=== PATIENT | female | born 1980 | race Caucasian/White ===

== ENCOUNTER 2020-01-25 18:48 | Emergency (ER) | payer OTHER ==
[2020-01-25 19:03] VITALS: TEMP 98.6; BMI 27.7
--- NOTE | 2020-01-25 19:13 | PDOC ---
History of Present Illness - General Chief Complaint: Blood Pressure Problem Stated Complaint: HYPERTENSIVE Time Seen by Provider: 01/25/20 19:12 History Source: Patient Exam Limitations: No Limitations - History of Present Illness Initial Comments: 01/25/20 19:13 40F with PMH of HTN presents to the ED with palpitations, 1 episode today, unprovoked, no emotional stressors, which prompted them to call EMS. This occurred at rest, self resolved. She was seen yesterday at [facility] w/ same complaint, 1 episode, and dx with new onset HTN, d/c with metoprolol. Took first dose this AM. She reports chest discomfort described as feeling like a "sunburn" but denies it being chest pain. Denies rash. She reported sudden onset blurry vision of bilateral eyes associated with palpitations, now resolved. Denies headache, syncope, lightheadedness/dizziness, numbness/tingling, SOB, hematuria. SH: , choleycystectomy Meds: metoprolol tartrate 25mg BID Allergies: NKDA Tob/Etoh/Rec drugs: neg x3 PCP: none ROS: HEENT: +change in vision. CARDIOVASCULAR: No chest pain or shortness of breath RESPIRATORY: No cough, wheezing, or hemoptysis. GASTROINTESTINAL: No nausea, vomiting, diarrhea or constipation. GENITOURINARY: No dysuria, frequency, or change in urination. SKIN: No rash NEUROLOGIC: No headache, vertigo, loss of consciousness, or change in strength/sensation. HEMATOLOGIC/LYMPHATIC: No anemia, easy bleeding, or history of blood clots. PE: GENERAL: AOx3; no apparent distress EYES: PERRLA, EOMI, conjunctiva clear; 20/20 vision bilaterally ENT: Auricles normal, hearing grossly normal, moist mucosa, oropharynx clear CARDIO: RRR, normal S1/S2, no murmurs, rubs, gallops LUNGS: No distress, speaks full sentences, CTA bilaterally ABDOMEN: Soft, nontender. No guarding, no rebound. No masses EXTREMITIES: no edema NEUROLOGICAL: CNII-XII intact. Normal speech. No focal sensorimotor deficits. Cerebellar testing intact. SKIN: No chest wall, flank or back rash/lesions Assessment and Plan 1. paroxysmal SVT, AVNRT 2. asymptomatic hypertension 3. hyperthyroidism 4. ACS r/o Jey Steven, PGY1 Emergency Medicine Past History - Medical History Allergies/Adverse Reactions: Allergies Allergy/AdvReac Type Severity Reaction Status Date / Time No Known Allergies Allergy Verified 01/25/20 20:12 - Reproductive History Is Patient Now?: No - Psycho-Social/Smoking History Smoking History: Never smoked - Substance Abuse Hx (Audit-C & DAST Scrn) How often the patient has a drink containing alcohol: Never Score: In Men: 4 or > Positive; In Women: 3 or > Positive: 0 Screen Result (Pos requires Nsg. Audit-10AR): Negative In the last yr the pt used illegal drug/Rx for NonMed reason: No Score: Yes response is considered Positive: 0 Screen Result (Positive result requires Nsg. DAST-10): Negative *Physical Exam - Vital Signs Last Vital Signs Temp Pulse Resp BP Pulse Ox 98.6 F 95 H 19 162/85 100 01/25/20 18:57 01/25/20 18:57 01/25/20 18:57 01/25/20 18:57 01/25/20 18:57 ED Treatment Course - LABORATORY CBC & Chemistry Diagram: 01/25/20 20:15 Medical Decision Making - Medical Decision Making 01/25/20 20:07 40F p/w palpitations. Exam unremarkable, no chest wall rash, vision . -> will r/o ACS, TSH to eval for hyperthyroidism. DDx: -asymptomatic HTN -ACS r/o -> considered due to chest discomfort -> EKG nsr, trop negative -paroxysmal SVT -> EKG -> no evidence on EKG -PE -> PERC negative -hyperthroidism -> TSH -> wnl 01/25/20 21:17 CXR negative. 01/25/20 21:21 Will give pt home dose metoprolol tartrate 25mg 01/25/20 23:02 Upreg negative. Vitals improved -> 141/89, HR 79, RR 18, 99% -> stable for d/c to follow up with PCP referral Discharge - Discharge Information Problems reviewed: Yes Clinical Impression/Diagnosis: Palpitations Condition: Stable Disposition: HOME - Admission No - Follow up/Referral Referrals: [facility] [place] [facility] [place] [Provider Group] - Patient Discharge Instructions Patient Printed Discharge Instructions: DI for High Blood Pressure Additional Instructions: You were seen in the emergency department for heart palpitations. You received metoprolol. Your labs and imaging were normal. Please follow up with your primary care physician regarding your visit to the emergency department. If you experience profound chest pain, shortness of breath, palpitations that won't improve with rest, please return to the emergency department or call 911. - Post Discharge Activity
--- OUTSIDE RECORDS SUMMARY | 2020-01-25 19:23 | XMS ---
:1980 Author Organization [facility] Care Team Providers Name Role Phone EMERGENCY SERVICE, X Unavailable Unavailable Re-disclosure Warning The records that you are about to access may contain information from federally- assisted alcohol or drug abuse programs. If such information is present, then the following federally mandated warning applies: This information has been disclosed to you from records protected by federal confidentiality rules (42 CFR part 2). The federal rules prohibit you from making any further disclosure of this information unless further disclosure is expressly permitted by the written consent of the person to whom it pertains or as otherwise permitted by 42 CFR part 2. A general authorization for the release of medical or other information is NOT sufficient for this purpose. The Federal rules restrict any use of the information to criminally investigate or prosecute any alcohol or drug abuse patient.The records that you are about to access may contain highly sensitive health information, the redisclosure of which is protected by Article 27-F of the [facility] Public Health law. If you continue you may haveaccess to information: Regarding HIV / AIDS; Provided by facilities licensed or operated by the [facility] Office of Mental Health; or Provided by the [facility] Office for People With Developmental Disabilities. If such information is present, then the following [facility] mandated warning applies: This information has been disclosed to you from confidential records which are protected by state law. State law prohibits you from making any further disclosure of this information without the specific written consent of the person to whom it pertains, or as otherwise permitted by law. Any unauthorized further disclosure in violation of state law may result in a fine or shelter sentence or both. A general authorization for the release of medical or other information is NOT sufficient authorization for further disclosure. Encounters Encounter Providers Location Date Indications Data Source(s ) Emergency Attender: 01/24/2020 NOT FEELING WELL [facility] EMERGENCY SERVICE, 03:11:00 PM [facility] XAdmitter: EDT [facility] EMERGENCY SERVICE, X NOT FEELING WELL Medications Medication Brand Start Product Dose Route Administrative Pharmacy atus Indications Reaction Description Data Name Date Form Instructions Instructions Source(s) Metoprolol UNK complet Metoprolo l [place] Tartrate 25 2020 MG ed Tartrate 25 r [place] MG Oral 10:14: MG Oral Health 30 PM Tablet TAKE Care EDT 1 TABLET Corporatio TWICE DAILY. n Dispense: 28 Potassium Potass UNK active Potassiu m [place] Chloride O ium 2019 meq Chloride r Cou nty Chlori 05:02: Oral 40 meq Heal th de O 48 PM PO Care EDT Corporatio n Medication administered onsite Metoprolol Metoprolol 01/24/2020 50 UNK active Metoprolol [place] (Lopresso (Lopresso 04:00:18 PM mg (Lo pressor) [facility] EDT 25 mg Oral Health Ca re 50 mg PO Corporation Medication administered onsite Insurance Providers Payer name Policy type Policy ID Covered Covered libertarian's Policy P kisohr / Coverage libertarian ID relationship to [place] Inf ormation type [place] MEDICA[place] [id number] SP [id number] Patient Treatment Plan of Care Planned Activity Planned Date Details Description Data Source (s) Potassium Chloride O 01/24/2020 05:02:48 [facility] PM EDT [facility] Metoprolol (Lopresso 01/24/2020 04:00:18 [facility] PM EDT [facility]
--- NOTE | 2020-01-25 20:50 | PDOC ---
Attending Attestation - Resident Resident Name: Jey Steven - ED Attending Attestation I have performed the following: I have examined & evaluated the patient, The case was reviewed & discussed with the resident, I agree w/resident's findings & plan, Exceptions are as noted - HPI HPI: 01/25/20 21:18 See resident HPI - Physicial Exam PE: 01/25/20 21:18 Agree with documented exam - Medical Decision Making 01/25/20 21:18 Palpitations, dysrhythmia, electrolyte derangement, hypovol?, consider pulm pathology, med effect pre-syncope? f/u labs, ekg, cxr dispo per clinical course Discharge - Discharge Information Problems reviewed: Yes Clinical Impression/Diagnosis: Palpitations Condition: Stable Disposition: HOME - Follow up/Referral Referrals: [facility] [place] Internal [facility] at [place] [Provider Group] - Patient Discharge Instructions Patient Printed Discharge Instructions: DI for High Blood Pressure Additional Instructions: You were seen in the emergency department for heart palpitations. You received metoprolol. Your labs and imaging were normal. Please follow up with your primary care physician regarding your visit to the emergency department. If you experience profound chest pain, shortness of breath, palpitations that won't improve with rest, please return to the emergency department or call 911. - Post Discharge Activity
[2020-01-25 21:20] LABS: ALBUMIN 4.1 g/dl (3.4-5.0); ALK PHOS 101 U/L (45-117); ANION GAP 8 MMOL/L (8-16); BILIRUBIN,TOTAL 0.4 mg/dL (0.2-1); BLOOD UREA NITROGEN 10.8 mg/dL (7-18); CALCIUM 8.8 mg/dL (8.5-10.1); CHLORIDE 104 mmol/L (98-107); CO2 22 mmol/L (21-32); CREATININE 0.7 mg/dL (0.55-1.3); GLUCOSE,RANDOM 292 mg/dL (74-106); POTASSIUM 4.4 mmol/L (3.5-5.1); SGOT/AST 23 U/L (15-37); SGPT/ALT 37 U/L (13-61); SODIUM 134 mmol/L (136-145); TOT PROT 8.8 g/dl (6.4-8.2)
[2020-01-25] MEDS ORDERED: METOPROLOL TARTRATE 25 MG TABLET (FP) PO ONE (21:20)
[2020-01-25] MEDS ORDERED: METOPROLOL TARTRATE 25 MG TABLET (FP) ONE (21:44)
[2020-01-25 22:59] LABS: EPI CELLS 6 /uL (0-25.1); HYALINE CASTS 0 /uL (0-3.1); URINE APPEARANCE CLEAR; URINE BACTERIA 277 /uL (0-1359); URINE BILIRUBIN NEGATIVE (NEGATIVE); URINE COLOR YELLOW; URINE GLUCOSE (UA) 3+ (NEGATIVE); URINE KETONE 1+ (NEGATIVE); URINE LEUK ESTERASE NEGATIVE (NEGATIVE); URINE NITRITE NEGATIVE (NEGATIVE); URINE PROTEIN 1+ (NEGATIVE); URINE RBC 2 /uL (0-23.9); URINE UROBILINOGEN 0.2 mg/dL (0.2-1.0); URINE WBC 6 /uL (0-25.8)
[2020-01-25 23:28] VITALS: BP 141/89; PULSE 78
--- NOTE | 2020-01-26 13:50 | EKG ---
Test Reason : Blood Pressure : / mmHG Vent. Rate : 099 BPM Atrial Rate : 099 BPM P-R Int : 136 ms QRS Dur : 070 ms QT Int : 366 ms P-R-T Axes : 055 026 034 degrees QTc Int : 469 ms NORMAL SINUS RHYTHM NO PREVIOUS ECGS AVAILABLE Confirmed by MARA SIMMONS MD ([id number]) on 01/26/2020 1:50:23 PM Referred By: Confirmed By:MARA SIMMONS MD
== END 2020-01-25 23:28 | disposition home or self-care (01) ==
LOC: JER 18:48
DX: R00.2 Palpitations (principal)
CPT/HCPCS: 36415; 71046-TC-FY; 80053; 81003; 82550; 84443; 84484; 84702; 84703; 93005; 93010; 99285-25

== ENCOUNTER 2020-07-10 17:00 | Inpatient (IN) | payer OTHER ==
[2020-07-10] MEDS ORDERED: ASPIRIN 325 MG TABLET PO ONE (17:58)
[2020-07-10] MEDS ORDERED: NITROGLYCERIN SUBLINGUAL 1/150 0.4 MG TAB SL ONE (17:58)
[2020-07-10] MEDS ORDERED: ASPIRIN 81 MG CHEWABLE TABLETS PO ONE (18:14)
[2020-07-10] MEDS ORDERED: ASPIRIN 81 MG CHEWABLE TABLETS ONE (18:17)
[2020-07-10] MEDS ORDERED: NITROGLYCERIN SUBLINGUAL 1/150 0.4 MG TAB ONE (18:18)
[2020-07-10 18:30] LABS: BASO % 0.1 % (0-2.0); EOS % 0.4 % (0-4.5); HEMATOCRIT 39.1 % (32.4-45.2); LYMPH % 21.7 % (8-40); MCH 29.8 pg (25.7-33.7); MCHC 33.3 g/dl (32.0-36.0); MEAN CELL VOLUME 89.7 fl (80-96); MEAN PLT VOLUME 10.4 fl (7.5-11.1); MONO % 6.1 % (3.8-10.2); NEUT % 71.7 % (42.8-82.8); PLATELET COUNT 240 K/MM3 (134-434); RBC 4.36 M/mm3 (3.60-5.2); RDW 13.2 % (11.6-15.6); WHITE BLOOD COUNT 6.5 K/mm3 (4.0-10.0)
[2020-07-10 18:38] LABS: PROTHROMBIN TIME (PATIENT) 12.3 SEC (9.7-13.0)
[2020-07-10 18:40] LABS: ACTIVATED PTT 30.9 SECONDS (25.2-36.5)
[2020-07-10 18:53] LABS: CHLORIDE 101 mmol/L (98-107); POTASSIUM 4.1 mmol/L (3.5-5.1); SODIUM 148 mmol/L (136-145)
[2020-07-10 18:55] LABS: ALBUMIN 4.3 g/dl (3.4-5.0); ANION GAP 22 MMOL/L (8-16); CO2 25 mmol/L (21-32)
[2020-07-10 18:56] LABS: BLOOD UREA NITROGEN 10.4 mg/dL (7-18); GLUCOSE,RANDOM 197 mg/dL (74-106); MAGNESIUM 2.4 mg/dL (1.8-2.4)
[2020-07-10 18:58] LABS: CALCIUM 9.8 mg/dL (8.5-10.1)
[2020-07-10 18:59] LABS: CREATININE 0.7 mg/dL (0.55-1.3); SGOT/AST 20 U/L (15-37); SGPT/ALT 33 U/L (13-61)
[2020-07-10 19:00] LABS: BILIRUBIN,TOTAL 0.2 mg/dL (0.2-1); TOT PROT 8.7 g/dl (6.4-8.2)
[2020-07-10 19:01] LABS: ALK PHOS 65 U/L (45-117)
[2020-07-10] MEDS ORDERED: LOSARTAN POTASSIUM 50 MG TABLET ONE (22:24)
[2020-07-10] MEDS: INSULIN SLIDING SCALE (NOVOLOG) 1 VIAL SQ SCH (22:35)
[2020-07-10] MEDS ORDERED: SODIUM CHLORIDE 0.45% 1,000 ML IV SCH (22:45)
[2020-07-10] MEDS: LOSARTAN POTASSIUM 50 MG TABLET PO SCH (23:33)
[2020-07-10 23:37] LABS: CHLORIDE 107 mmol/L (98-107); POTASSIUM 3.9 mmol/L (3.5-5.1); SODIUM 144 mmol/L (136-145)
[2020-07-10 23:39] LABS: CALCIUM 9.2 mg/dL (8.5-10.1)
[2020-07-10 23:40] LABS: ALBUMIN 3.8 g/dl (3.4-5.0); ANION GAP 12 MMOL/L (8-16); BLOOD UREA NITROGEN 10.6 mg/dL (7-18); CO2 25 mmol/L (21-32); GLUCOSE,RANDOM 159 mg/dL (74-106)
[2020-07-10 23:43] LABS: CREATININE 0.8 mg/dL (0.55-1.3); SGOT/AST 21 U/L (15-37); SGPT/ALT 30 U/L (13-61)
[2020-07-10 23:44] LABS: BILIRUBIN,TOTAL 0.2 mg/dL (0.2-1)
[2020-07-10 23:45] LABS: TOT PROT 7.9 g/dl (6.4-8.2)
[2020-07-10 23:46] LABS: ALK PHOS 56 U/L (45-117)
[2020-07-11 04:06] LABS: URINE APPEARANCE CLEAR; URINE BILIRUBIN NEGATIVE (NEGATIVE); URINE COLOR YELLOW; URINE GLUCOSE (UA) NEGATIVE (NEGATIVE); URINE KETONE NEGATIVE (NEGATIVE); URINE LEUK ESTERASE NEGATIVE (NEGATIVE); URINE NITRITE NEGATIVE (NEGATIVE); URINE PROTEIN NEGATIVE (NEGATIVE); URINE UROBILINOGEN 0.2 mg/dL (0.2-1.0)
[2020-07-11 04:46] LABS: CREATININE, URINE RANDOM < 13.0 mg/dL (30-150)
[2020-07-11 06:39] LABS: BASO % 0.3 % (0-2.0); EOS % 1.3 % (0-4.5); HEMATOCRIT 36.1 % (32.4-45.2); HEMOGLOBIN 12.1 GM/dL (10.7-15.3); LYMPH % 39.5 % (8-40); MCH 30.1 pg (25.7-33.7); MCHC 33.6 g/dl (32.0-36.0); MEAN CELL VOLUME 89.6 fl (80-96); MEAN PLT VOLUME 9.8 fl (7.5-11.1); MONO % 7.6 % (3.8-10.2); NEUT % 51.3 % (42.8-82.8); PLATELET COUNT 214 K/MM3 (134-434); RBC 4.03 M/mm3 (3.60-5.2); RDW 13.1 % (11.6-15.6); WHITE BLOOD COUNT 7.2 K/mm3 (4.0-10.0)
[2020-07-11 06:52] LABS: POTASSIUM 3.9 mmol/L (3.5-5.1)
[2020-07-11 06:54] LABS: ALBUMIN 3.5 g/dl (3.4-5.0); MAGNESIUM 2.4 mg/dL (1.8-2.4)
[2020-07-11 06:55] LABS: BLOOD UREA NITROGEN 9.2 mg/dL (7-18); CALCIUM 8.6 mg/dL (8.5-10.1)
[2020-07-11 06:57] LABS: CREATININE 0.5 mg/dL (0.55-1.3)
[2020-07-11 06:58] LABS: PHOSPHOROUS 2.9 mg/dL (2.5-4.9)
[2020-07-11 06:59] LABS: TOT PROT 7.2 g/dl (6.4-8.2)
[2020-07-11 07:00] LABS: BILIRUBIN,TOTAL 0.4 mg/dL (0.2-1)
[2020-07-11] MEDS: INSULIN SLIDING SCALE (NOVOLOG) 1 VIAL SQ SCH ×3 (07:20→23:10)
[2020-07-11] MEDS ORDERED: HYDROCHLOROTHIAZIDE 12.5 MG CAPSULE (FP) PO SCH ×2 (10:00)
[2020-07-11] MEDS: ENOXAPARIN NA (PORCINE) 40 MG/0.4 ML DISP.SYRIN SQ SCH (12:41)
[2020-07-11 22:25] VITALS: BMI 27.3
[2020-07-11] MEDS: LOSARTAN POTASSIUM 50 MG TABLET PO SCH (23:09)
[2020-07-12] MEDS: INSULIN SLIDING SCALE (NOVOLOG) 1 VIAL SQ SCH ×3 (06:38→18:55)
[2020-07-12 08:01] LABS: HEMATOCRIT 38.1 % (32.4-45.2); HEMOGLOBIN 13.4 GM/dl (10.7-15.3); MCH 31.7 pg (25.7-33.7); MCHC 35.1 g/dl (32.0-36.0); MEAN CELL VOLUME 90.3 fl (80-96); MEAN PLT VOLUME 9.3 fl (7.5-11.1); PLATELET COUNT 226 K/MM3 (134-434); RBC 4.22 M/mm3 (3.60-5.2); RDW 11.9 % (11.6-15.6); WHITE BLOOD COUNT 7.8 K/mm3 (4.0-10.8)
[2020-07-12 08:07] LABS: ALBUMIN 4.1 g/dl (3.4-5.0); BILIRUBIN,TOTAL 0.7 mg/dl (0.2-1); CALCIUM 8.8 mg/dl (8.5-10); CREATININE 0.6 mg/dl (0.55-1.3); POTASSIUM 3.8 mmol/L (3.5-5.1); TOT PROT 7.6 g/dl (6.4-8.2)
[2020-07-12] MEDS: ENOXAPARIN NA (PORCINE) 40 MG/0.4 ML DISP.SYRIN SQ SCH (10:01)
[2020-07-12 17:26] VITALS: BP 126/68; PULSE 88; TEMP 98.6
[2020-07-13] MEDS ORDERED: ESCITALOPRAM OXALATE 10 MG TABLET PO SCH (10:00)
[2020-07-13] MEDS ORDERED: ATORVASTATIN CA 20 MG TABLET (FP) PO SCH (22:00)
== END 2020-07-12 20:06 | disposition home or self-care (01) | DRG 199 ==
LOC: JER 17:00 → JERBED 20:22 → FM/S 07-11 21:57
PROVIDERS: ADMIT Internal Medicine; ATTEND Nurse Practitioner Acute Care
DX: I16.0 Hypertensive urgency (principal); E87.0 Hyperosmolality and hypernatremia; E11.65 Type 2 diabetes mellitus with hyperglycemia; E86.0 Dehydration; Z79.84 Long term (current) use of oral hypoglycemic drugs; E78.5 Hyperlipidemia, unspecified
CPT/HCPCS: 36415; 71046-TC-FY; 71275-TC; 78452-TC; 80053; 80061; 81003; 82533; 82550; 82570; 82962; 83036; 83721; 83735; 84100; 84156; 84443; 84484; 84703; 85025; 85027; 85379; 85610; 85730; 93005; 93010; 93017; 93306-TC; 99285-25; A9502; C9803; Q9967; U0003; U0005